=== PATIENT | female | born 1990 | race Caucasian/White ===

== ENCOUNTER 2024-09-23 17:32 | Emergency (ER) | payer OTHER, MEDICAID, SELFPAY ==
[2024-09-23 17:36] VITALS: BP 174/113; PULSE 76; RESP 18; TEMP 36.6; O2SAT 100; BMI 26.5
--- NOTE | 2024-09-23 18:04 | ED_ITS ---
<Statement entered by Montrell Jacobs, DO - 09/24/24 10:51> Co-sign Statement: I was available for consultation during this patient's emergency department visit. This chart is signed by myself for administrative purposes only. I did not have direct contact with this patient during this visit. They were seen independently by the APC. HPI - Nausea/Vomiting/Diarrhea General Chief complaint: Nausea/Vomiting/Diarrhea Stated complaint: Nausea & vomiting Time Seen by Provider: 09/23/24 17:52 Source: patient Mode of arrival: EMS History of Present Illness HPI Narrative: Ms. Enciso is a pleasant 34-year-old female with a past medical history of hypertension who has been struggling with cyclic nausea and vomiting for the last 2 years who presents to the emergency department via EMS from home for nausea and vomiting since she woke up at 11:00 a.m. today. Patient is accompanied by her partner. States that she felt in her normal state of health when she went to sleep last night, however when she woke up this morning around 11:00 a.m. who is extremely nauseous and has had approximately 6 episodes of nonbloody vomiting since then. States that she attempted to take promethazine at home but she continued to throw it up. She does have Zofran but this does not ever work for her. States that she has been evaluated in the emergency department 2 times prior for the cyclic vomiting episodes, most recently 1 year ago, and actually has a standing referral to GI however is currently experiencing issues with insurance denied the claim and stating it is elective. Patient denies any pain associated with her nausea and vomiting. She has not experiencing any chest pain, shortness of breath, fevers, dysuria, flank pain, constipation or diarrhea. She does experience chills while she is actively vomiting. Prior abdominal surgery includes ectopic removal. She vapes but she does not smoke marijuana. She drinks alcohol occasionally, socially. Her partner does smoke marijuana around her. Related Data Home Medications ?Medication ?Instructions ?Recorded ?Confirmed guanfacine 3 mg tablet,extended 3 mg PO ##0 11/07/12 release 24 hr (Intuniv ER) metoprolol tartrate 25 mg tablet 25 mg PO BID ##0 09/14 sertraline 100 mg tablet 100 mg PO QDAY ##0 11/07/12 trazodone 50 mg tablet 50 mg PO HS ##0 11/07/12 Previous Rx's ?Medication ?Instructions ?Recorded metoclopramide HCl 10 mg tablet 10 mg PO Q6H PRN nause a and 09/23/24 (Reglan) vomiting #20 tabs Allergies Allergy/AdvReac Type Severity Reaction Status Date / Time No Known Drug Allergies Allergy Verified 09/23/24 17:35 Review of Systems Review of Systems ROS Unobtainable: All systems reviewed & are unremarkable except as noted in HPI and below Patient History tobacco type: vaping Exam Narrative Exam Narrative: GENERAL: 34 year old patient appears stated age. Well-developed patient, in no acute distress, sitting in ER recliner. HEAD: Atraumatic. Normocephalic. EYES: No scleral icterus. No injection or drainage. NECK: Trachea midline. Cervical ROM intact. CARDIOVASCULAR: Regular rate and rhythm. RESPIRATORY: ?Nonlabored respirations. ?Speaking in clear, full sentences. ?Clear to auscultation. Breath sounds equal bilaterally. No wheezes, rales, or rhonchi. ? GASTROINTESTINAL: Abdomen soft, non-tender, nondistended. Bowel sounds present. EXTREMITIES: No edema or joint tenderness. BACK: No CVA tenderness. NEURO: AOx3. ?Clear speech. ?Moves all 4 extremities appropriately. SKIN: No rash or erythema of visible areas. Skin is warm, dry. Initial Vital Signs Initial Vital Signs: Vital Signs Temperature 97.9 F 09/23/24 17:36 Pulse Rate 76 09/23/24 17:36 Respiratory Rate 18 09/23/24 17:36 Blood Pressure 174/113 H 09/23/24 17:36 Pulse Oximetry 100 09/23/24 17:36 Oxygen Delivery Method Room Air 09/23/24 17:36 Course Orders Ordered: ED Orders 09/23/24 17:53 Complete Blood Count AUTO DIFF Stat Comprehensive Metabolic Panel Stat Lipase Stat Magnesium Stat 09/23/24 18:33 Urine Culture Stat Urine Microscopic Stat Discontinued Medications Diphenhydramine HCl (Diphenhydramine 50 Mg/Ml Vial) 25 mg IV NOW ONE Stop: 09/23/24 17:54 Last Admin: 09/23/24 18:12 Dose: 25 mg Sodium Chloride (Normal Saline 0.9%) 1,000 mls @ 1,000 mls/hr IV BOLUS ONE Stop: 09/23/24 18:52 Last Infusion: 09/23/24 19:16 Dose: Infused Metoclopramide HCl (Metoclopramide 10 Mg/2 Ml Inj) 10 mg IV NOW ONE Stop: 09/23/24 17:54 Last Admin: 09/23/24 18:12 Dose: 10 mg Vital Signs Vital signs: Vital Signs - 8 hr 09/23/24 17:36 09/23/24 19:09 Temperature 97.9 F Pulse Rate 76 81 Respiratory Rate 18 18 Blood Pressure 174/113 H 166/114 H Pulse Oximetry 100 99 Oxygen Delivery Method Room Air Room Air MDM - Nausea/Vomiting/Diarrhea Medical Records Medical records narrative: None available for review Lab Data 09/23/24 18:02 09/23/24 18:02 Labs: Lab Results 09/23/24 09/23/24 Range/Units 18:02 18:33 WBC 12.4 H (4.5-11.0) X10^3/uL RBC 4.48 (4.0-5.2) X10^6/uL Hgb 13.6 (12.0-16.0) g/dL Hct 40.3 (36-46) % MCV 89.8 (80-100) fL MCH 30.3 (26-34) PG MCHC 33.7 (30-36) % RDW 13.2 (11.6-14.8) % Plt Count 440 H (150-400) X10^3/uL Neut % (Auto) 85.1 H (50-75) % Lymph % (Auto) 10.3 L (25-40) % [place] % (Auto) 4.0 (3-14) % Eos % (Auto) 0.2 L (2-4) % Baso % (Auto) 0.4 (0-2) % Neut # (Auto) 36662 H (8661-3125) /uL Lymph # (Auto) 1300 (9960-7587) /uL [place] # (Auto) 500 (0-900) /uL Eos # (Auto) 0 (0-450) /uL Baso # (Auto) 100 (0-100) /uL Sodium 137 (137-145) mmol/L Potassium 4.4 (3.4-5.1) mmol/L Chloride 102 (98-107) mmol/L Carbon Dioxide 24 (22-32) mmol/L BUN 12 (7-17) mg/dL Creatinine 0.71 (0.52-1.04) mg/dL Estimated GFR > 60 (>60) mL/min BUN/Creatinine Ratio 16.9 (6-22) Glucose 109 H (70-99) mg/dL Calcium 8.8 (8.4-10.2) mg/dL Magnesium 1.7 (1.6-2.3) mg/dL Total Bilirubin 0.6 (0.2-1.3) mg/dL AST 34 (14-36) IU/L ALT 26 (<35) IU/L Alkaline Phosphatase 56 (38-126) U/L Total Protein 7.8 (6.3-8.2) g/dL Albumin 4.9 (3.5-5.0) g/dL Globulin 2.9 (1.7-4.1) g/dL Albumin/Globulin Ratio 1.7 (1.0-2.8) Lipase 57 (23-300) U/L Urine RBC 0-1/hpf (0-5/HPF) Urine WBC 0-1/hpf (0-5/HPF) Ur Squamous Epith Cells 0-1 /hpf (0-5/HPF) Urine Bacteria Occasional (0-1) (None) Vol Urine Centrifuged 10ml (spun) Point of Care Testing Test Results Negative Urine Dip Bedside Urine Glucose Negative Bedside Urine Bilirubin - Negative Bedside Urine Ketone - Negative Urine Specific [place] 1.010 Bedside Urine Occult Blood - Negative Bedside Urine pH 8.0 Bedside Urine Protein +/- 15 Bedside Urine Urobilinogen - Negative Bedside Urine Nitrite - Negative Bedside Urine Leukocytes - Negative Esterase MDM Narrative Medical decision making narrative: 34-year-old female with a past medical history of hypertension who has been struggling with cyclic nausea and vomiting for the last 2 years who presents to the emergency department via EMS from home for nausea and vomiting since she woke up at 11:00 a.m. today. Differential diagnosis includes but is not limited to gastroenteritis, cyclic vomiting syndrome, electrolyte abnormality, dehydration, UTI, viral syndrome, etc. On exam patient is in no acute distress, nontoxic appearing, vital signs within normal limits except for elevated blood pressure, she has not currently vomiting however she did have an episode of yellow emesis with EMS. Her abdomen is soft and nontender and she denies any change in bowel movements or pain associated with her nausea. We will treat symptoms with IV fluids, Reglan and Benadryl as patient states Zofran does not typically help and she attempted to but was unable to keep down Phenergan. We will obtain CBC, CMP, lipase, magnesium and a UA and a Upreg. Labs reveal elevated WBC count 12.4 elevated platelets 440 consistent with the patient's history of vomiting, she has not experiencing any pain, tachycardia or fevers concerning for infection. Normal hemoglobin hematocrit 13.6, 40.3. Normal sodium 137, potassium 4.4, chloride 102, magnesium 1.7, calcium 8.8. Normal renal function with a BUN 12 creatinine 0.71. All LFTs within normal limits. Lipase normal 57. Preg neg. UA without signs of infection. Patient requesting discharge home, feeling better, tolerating p.o. Her blood pressure is still elevated however she has not experiencing any chest pain or shortness of breath, states that she is due for her nightly propranolol which she can take when she gets home, advised daily blood pressure monitoring follow up with PCP for blood pressure recheck. Will prescribe Reglan as needed, recommended supportive care, capsaicin cream, warm shower, hydration, follow up with PCP and GI. Patient verbalized understanding of all information and is agreeable to the plan. She is stable for discharge home. Discharge Plan Departure Patient Disposition: Home Clinical Impression: Elevated blood pressure reading Nausea and vomiting Qualifiers: Vomiting type: unspecified Qualified Code(s): R11.2 - Nausea with vomiting, unspecified Instructions: DI for Cyclic Vomiting Syndrome-Adult Activity Restrictions/Additional Instructions: Dear Zaria, Thank you for coming to the emergency department. Today you were evaluated for nausea and vomiting. Your lab work revealed normal kidney and liver function, and your electrolytes are all within normal range at this time. You were treated with IV nausea medication Benadryl and fluids. Please take small but frequent sips of electrolyte beverage such as Pedialyte, Gatorade or liquid IV. I do recommend that you follow up with your primary care doctor and your sign maker for further management. Sometimes taking a warm shower or applying Capsaicin cream to the abdomen or the back of the arms can be helpful for cyclic vomiting (apply up to 3-4 times daily if needed). Capsaicin Cream can be purchased [id number] such as at [facility]. Your blood pressure was elevated today. Please continue taking your home blood pressure medication as prescribed, and take your blood pressure daily and write down the value to bring with you to your next primary care's doctor's appointment. If you ever experienced chest pain or shortness of breath, please come to the ER. Please follow up with your primary care doctor within the next 2-3 days for ER follow-up. (If you do not have a PCP you can call [phone]. ?to schedule an appointment with an [facility] Primary Care Provider) IF YOU DEVELOP ANY NEW OR WORSENING SYMPTOMS, RETURN TO THE ER! Please read the attached instructions, they highlight more specific treatments and interventions for you at home. Thank you for letting me participate in your care, Kirstin Rojo PA-C Prescriptions: New metoclopramide HCl [Reglan] 10 mg tablet 10 mg PO Q6H PRN (Reason: nausea and vomiting) Qty: 20 0RF No Action metoprolol tartrate 25 MG tablet 25 mg PO BID Qty: 0 guanfacine [Intuniv ER] 3 MG tablet extended release 24 hr 3 mg PO Qty: 0 trazodone 50 MG tablet 50 mg PO HS Qty: 0 sertraline 100 MG tablet 100 mg PO QDAY Qty: 0 Stand Alone Forms: Patient Portal/API
[2024-09-23 18:08] LABS: Add Manual Diff / Slide Review NO; Basophils Absolute Auto 100 /uL (0-100); Basophils Percent Auto 0.4 % (0-2); Eosinophils Absolute Auto 0 /uL (0-450); Eosinophils Percent Auto 0.2 % (2-4); Hematocrit 40.3 % (36-46); Hemoglobin 13.6 g/dL (12.0-16.0); Lymphocytes Absolute Auto 1300 /uL (1100-4500); Lymphocytes Percent Auto 10.3 % (25-40); Mean Corpuscular HGB Conc 33.7 % (30-36); Mean Corpuscular Hemoglobin 30.3 PG (26-34); Mean Corpuscular Volume 89.8 fL (80-100); Monocytes Absolute Auto 500 /uL (0-900); Neutrophils Absolute Auto 10500 /uL (1500-7000); Neutrophils Percent Auto 85.1 % (50-75); Platelet Count 440 X10^3/uL (150-400); Red Blood Cell Count 4.48 X10^6/uL (4.0-5.2); Red Cell Distribution Width 13.2 % (11.6-14.8); White Blood Cell Count 12.4 X10^3/uL (4.5-11.0)
[2024-09-23] MEDS: SODIUM CHLORIDE 0.9% 1,000 ML 1000 ML IV (18:12)
[2024-09-23] MEDS: diphenhydrAMINE 50 MG/ML VIAL 25 MG IV (18:12)
[2024-09-23] MEDS: METOCLOPRAMIDE 10 MG/2 ML INJ IV (18:12)
[2024-09-23 18:19] LABS: Alanine Aminotransferase 26 IU/L (<35); Albumin 4.9 g/dL (3.5-5.0); Albumin Globulin Ratio 1.7 (1.0-2.8); Alkaline Phosphatase 56 U/L (38-126); Aspartate Aminotransferase 34 IU/L (14-36); BUN Creatinine Ratio 16.9 (6-22); Bilirubin Total 0.6 mg/dL (0.2-1.3); Blood Urea Nitrogen 12 mg/dL (7-17); Calcium 8.8 mg/dL (8.4-10.2); Carbon Dioxide 24 mmol/L (22-32); Chloride 102 mmol/L (98-107); Estimated Glomerular Filt Rate > 60 mL/min (>60); Globulin 2.9 g/dL (1.7-4.1); Glucose 109 mg/dL (70-99); HEMOLYSIS < 15 (0-50); Lipase 57 U/L (23-300); Magnesium 1.7 mg/dL (1.6-2.3); Potassium 4.4 mmol/L (3.4-5.1); Sodium 137 mmol/L (137-145); Total Protein 7.8 g/dL (6.3-8.2)
[2024-09-23 19:09] VITALS: BP 166/114; PULSE 81; RESP 18; O2SAT 99
[2024-09-23 19:20] LABS: Bacteria Urine Occasional (0-1); RBC Urine 0-1/HPF (0-5/HPF); Squamous Epithelial Cell Urine 0-1 /HPF (0-5/HPF); Urine Volume 10mL (spun); WBC Urine 0-1/HPF (0-5/HPF)
== END 2024-09-23 19:24 | disposition home or self-care (01) ==
PROVIDERS: Emergency Provider Physician Assistant
DX: R11.2 Nausea with vomiting, unspecified (principal); R03.0 Elevated blood-pressure reading, without diagnosis of hypertension
CPT/HCPCS: 36415; 80053; 81003; 81015; 81025; 83690; 83735; 85025; 87086; 96361; 96374; 96375; 99284; J1200; J2765